=== PATIENT | female | born 1985 | race Caucasian/White ===

== ENCOUNTER 2017-10-28 20:26 | Emergency (ER) | payer OTHER ==
[~2017-10-28] VITALS: Ht 165.1 cm; Wt 190.5 kg
[2017-10-28] MEDS ORDERED: BENADRYL25 MG PO (21:17)
== END 2017-10-28 21:35 | disposition home or self-care (01) ==
LOC: ER 20:26
DX: T63.461A Toxic effect of venom of wasps, accidental (unintentional), initial encounter (principal); W57.XXXA Bitten or stung by nonvenomous insect and other nonvenomous arthropods, initial encounter
CPT/HCPCS: 99282; Q0163